=== PATIENT | female | born 1950 | race Caucasian/White ===

== ENCOUNTER 2017-05-09 17:03 | Emergency (ER) | payer MEDICARE ==
[2013-08-10 06:19] VITALS: BMI 31.9
[~2017-05-09 17:03] MED LIST: ACETAMINOPHEN500 M1 PO; AMBIEN10 MG PO; ASPIRIN81 MG PO; BAYER CHEWABLE81 MG PO; GAS-X80 MG PO; KLONOPIN0.5 MG PO; LAMICTAL200 MG PO; LEVAQUIN 5500 MG/100 IV; LEVAQUIN250 MG PO; LISINOPRIL5 MG PO; NITROGLYCERIN0.3 MG SL; NITROQUICK0.4 MG; NITROQUICK0.4 MG SL; OXYCODONE HCL5 MG PO; OYST-CAL-5001 TAB PO; PERCOCET 5/3251 TA1 PO; PLAVIX75 MG PO; PROTONIX40 MG PO; SALINE FLUSH10 ML IV; SODIUM CL 0.91000 ML IV; STOOL SOFTENER240 MG PO; TOPROL XL50 MG PO; ZOCOR10 MG PO; ZOCOR5 MG PO; ZOFRAN ODT4 MG/UDTAB PO; ZOFRAN4 MG PO
[2017-05-09 18:11] LABS: BASOPHILS 0.4 % (0-2); EOSINOPHILS 0.9 % (0-7); HEMATOCRIT 39.3 % (36.0-48.0); HEMOGLOBIN 12.7 g/dL (12-16); IMMATURE GRANULOCYTES 0.2 % (0-5); MCH 31.5 pg (26.0-34.0); MCHC 32.3 g/dL (31.0-37.0); MCV 97.5 fL (80.0-100.0); MONOCYTES 6.8 % (2-11); NEUTROPHILS 63.7 % (40-80); RBC 4.03 10x6/uL (4.00-5.40); RDW 13.8 % (11.5-14.5); WBC 5.6 10x3/uL (4.8-10.8)
[2017-05-09 18:18] LABS: PLATELET COUNT 238 10x3/uL (130-400)
[2017-05-09 18:20] LABS: ALBUMIN 3.2 g/dL (3.4-5.0); ANION GAP 14.7 mmol/L (8-16); BILIRUBIN - TOTAL 0.19 mg/dL (0.2-1.3); CALCIUM 8.7 mg/dL (8.5-10.1); CARBON DIOXIDE 24.7 mmol/L (21.0-32.0); CREATININE - SERUM 1.3 mg/dL (0.6-1.3); POTASSIUM - SERUM 4.4 mmol/L (3.5-5.1); PROTEIN - SERUM 6.7 g/dL (6.4-8.2)
[2017-05-09 18:28] LABS: APPEARANCE HAZY (CLEAR); BILIRUBIN NEGATIVE (NEGATIVE); COLOR YELLOW (YELLOW); GLUCOSE NEGATIVE (NEGATIVE); KETONE NEGATIVE (NEGATIVE); NITRITE POSITIVE (NEGATIVE); PH 6.5 (5.0-6.0); PROTEIN NEGATIVE (NEGATIVE); SPECIFIC GRAVITY 1.015 (1.005-1.020); UROBILINOGEN NORMAL (NORMAL)
[2017-05-09 18:33] LABS: BACTERIA MANY /hpf (NONE SEEN); EPITHELIAL CELLS OCC /hpf (0-5); HYALINE CAST RARE /lpf (NONE SEEN); RED CELLS - URINE OCC /hpf (0-5); WHITE CELLS - URINE >50 /hpf (0-5)
== END 2017-05-09 20:43 | disposition home or self-care (01) ==
LOC: D.ER 17:03
PROVIDERS: Emergency Medicine
DX: R53.1 Weakness (principal); R10.2 Pelvic and perineal pain; N39.0 Urinary tract infection, site not specified; I10 Essential (primary) hypertension; F17.200 Nicotine dependence, unspecified, uncomplicated

== ENCOUNTER 2017-12-07 21:29 | Emergency (ER) | payer MEDICARE ==
[2013-08-10 06:19] VITALS: BMI 31.9
== END 2017-12-08 01:35 | disposition home or self-care (01) ==
LOC: D.ER 21:29
DX: S16.1XXA Strain of muscle, fascia and tendon at neck level, initial encounter (principal); X58.XXXA Exposure to other specified factors, initial encounter; Y93.89 Activity, other specified; Y92.89 Other specified places as the place of occurrence of the external cause; M54.2 Cervicalgia; I10 Essential (primary) hypertension

== ENCOUNTER 2020-02-13 22:07 | Emergency (ER) | payer MEDICARE ==
[~2020-02-13] VITALS: Ht 157.5 cm; Wt 77.3 kg
[2020-02-13 22:29] VITALS: Ht 157.5 cm; Wt 77.3 kg
[2020-02-13 22:50] LABS: BASOPHILS 0.1 % (0-2); EOSINOPHILS 0.2 % (0-7); HEMATOCRIT 38.4 % (36.0-48.0); HEMOGLOBIN 12.5 g/dL (12-16); IMMATURE GRANULOCYTES 0.2 % (0-5); LYMPHOCYTES 9.6 % (15-50); MCH 30.8 pg (26.0-34.0); MCHC 32.6 g/dL (31.0-37.0); MCV 94.6 fL (80.0-100.0); MEAN PLATELET VOLUME 9.7 fL (7.4-10.4); MONOCYTES 8.4 % (2-11); NEUTROPHILS 81.5 % (40-80); RBC 4.06 10x6/uL (4.00-5.40); RDW 12.6 % (11.5-14.5); WBC 12.6 10x3/uL (4.8-10.8)
[2020-02-13 22:51] LABS: PLATELET COUNT 182 10x3/uL (130-400)
[2020-02-13 23:00] LABS: CALC OSMOLALITY 285 mosm/kg (275-300); CALCIUM 9.1 mg/dL (8.5-10.1); CARBON DIOXIDE 25.6 mmol/L (21.0-32.0); CHLORIDE - SERUM 105 mmol/L (98-107); CREATININE - SERUM 1.9 mg/dL (0.6-1.3); GLUCOSE 126 mg/dL (74-106); POTASSIUM - SERUM 3.8 mmol/L (3.5-5.1); SODIUM 136 mmol/L (136-145); UREA NITROGEN 47 mg/dL (7-18); eGFR NON AFRICAN AMERICAN 28 mL/min (90-120)
[2020-02-13 23:13] LABS: ALBUMIN 2.9 g/dL (3.4-5.0); ALKALINE PHOSPHATASE 97 U/L (30-120); ALT (SGPT) 29 U/L (10-68); BILIRUBIN - TOTAL 0.54 mg/dL (0.2-1.3); CREATINE KINASE 41 UL (21-215); PROTEIN - SERUM 6.8 g/dL (6.4-8.2)
[2020-02-13 23:26] LABS: TROPONIN-I < 0.017 ng/mL (0.000-0.060)
[2020-02-14 05:37] VITALS: BP 158/68
== END 2020-02-14 05:39 | disposition home or self-care (01) ==
LOC: D.ER 22:07
PROVIDERS: Family Medicine
DX: R51 Headache (principal); R79.89 Other specified abnormal findings of blood chemistry; R91.1 Solitary pulmonary nodule; I10 Essential (primary) hypertension; I25.2 Old myocardial infarction; Z95.1 Presence of aortocoronary bypass graft; Z72.0 Tobacco use